=== PATIENT | female | born 1940 | race American Indian/Alaskan Native ===

== ENCOUNTER 2017-10-31 00:40 | Inpatient (IN) | payer MEDICARE ==
[2017-10-31] MEDS ORDERED: Albuterol/Ipratropium 3.0-0.5 MG/3 ML Neb Soln ONE (00:52)
[2017-10-31] MEDS ORDERED: Albuterol/Ipratropium 3.0-0.5 MG/3 ML Neb Soln NEB ONE (00:52)
[2017-10-31] MEDS ORDERED: Furosemide 40 MG/4 ML VIAL IVPUSH ONE ×3 (02:01→17:00)
--- NOTE | 2017-10-31 02:50 | EDM.PDOC ---
ED HPI GENERAL MEDICAL PROBLEM - General Chief Complaint: Respiratory Problem Stated Complaint: [facility] Time Seen by Provider: 10/31/17 00:43 Source of Information: Reports: Patient, EMS, RN Notes Reviewed - History of Present Illness INITIAL COMMENTS - FREE TEXT/NARRATIVE: 76-year-old female has been brought here by [facility] for evaluation and treatment of severe difficulty breathing. She does have chronic CHF, chronic renal insufficiency, type 2 diabetes, chronic obesity. Granddaughter states that she is noncompliant with her meds, is supposed to be on furosemide 40 mg twice a day but often misses doses. They state that they have been watching this more carefully this past week or 10 days, trying to make sure she is taking her medication but despite that she continues to "gain weight", become more short of breath with increasing difficulty of mobility to and from commode, chairs and bed. They state she does not walk, uses a scooter to get around. The granddaughter state they have been trying to get her to hospital for about 3 weeks and she has been refusing ago. Her breathing became difficult enough this past evening that she agreed to let them call an ambulance. The granddaughters believe that her current weight is much above her "baseline of around 280 pounds" She has not been coughing. She denies chest pain. - Related Data Allergies Allergy/AdvReac Type Severity Reaction Status Date / Time amoxicillin Allergy Hives Verified 02/16/15 07:52 Home Meds: Home Meds FLUoxetine [PROzac] 60 mg PO DAILY 02/15/15 [History] Potassium Chloride [Klor-Con 10] 20 meq PO DAILY 02/15/15 [History] Carvedilol [Coreg] 3.125 mg PO BID #0 02/19/15 [Rx] Cholecalciferol (Vitamin D3) [Vitamin D3] 2,000 unit PO DAILY 10/31/17 [History] Furosemide [Lasix] 40 mg PO BID 10/31/17 [History] Loratadine [Claritin] 10 mg PO DAILY 10/31/17 [History] Nystatin [Nystatin Crm] 1 dose TOP QID 10/31/17 [History] SitaGLIPtin [Januvia] 25 mg PO DAILY 10/31/17 [History] Triamcinolone Acetonide [Triamcinolone Acetonide 0.5%] 1 dose TOP BID 10/31/17 [ History] hydrOXYzine HCl [hydrOXYzine] 50 mg PO BEDTIME 10/31/17 [History] Past Medical History Cardiovascular History: Reports: Heart Failure Respiratory History: Reports: Pneumonia, Recurrent Gastrointestinal History: Reports: Diverticulosis 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: Reports: Musculoskeletal History: Reports: Fracture Neurological History: Reports: Brain Injury Endocrine/Metabolic History: Reports: Diabetes, Type II - Past Surgical History GI Surgical History: Reports: Colonoscopy, EGD, Hernia Repair/Other Other Female Surgeries/Procedures: then tubes reconstructed Other Musculoskeletal Surgeries/Procedures:: rt ankle pin after fracture, left ankle after accident Social & Family History - Tobacco Use Smoking Status *Q: Never Smoker - Recreational Drug Use Recreational Drug Use: No - Living Situation & Occupation Living situation: Reports: Single ED ROS GENERAL - Review of Systems Review Of Systems: See Below Constitutional: Denies: Fever, Chills, Diaphoresis HEENT: Denies: Throat Pain Respiratory: Reports: Shortness of Breath. Denies: Pleuritic Chest Pain, Cough Cardiovascular: Denies: Chest Pain GI/Abdominal: Denies: Abdominal Pain, Nausea, Vomiting Musculoskeletal: Denies: Shoulder Pain, Arm Pain Neurological: Reports: Difficulty Walking, Weakness (Generalized). Denies: Trouble Speaking ED EXAM, GENERAL - Physical Exam Exam: See Below General Appearance: Alert, No Apparent Distress Eye Exam: Bilateral Eye: PERRL Throat/Mouth: Normal Inspection Head: Atraumatic Neck: Supple Respiratory/Chest: Respiratory Distress (Mild tachypnea), Rales (Bilateral bases ). No: Rhonchi Cardiovascular: Regular Rate, Rhythm, Bradycardia GI/Abdominal: Other (Markedly obese) Extremities: Pedal Edema (Severe bilateral) Neurological: Alert, Oriented, No Motor/Sensory Deficits Skin Exam: Warm, Dry, Normal Color EKG INTERPRETATION EKG Date: 10/31/17 P-Wave: Absent QRS: RBBB ST-T: Other (mild nonspecific St changes) Course - Vital Signs Last Recorded V/S: Last Vital Signs Temp 98.4 F 10/31/17 01:02 Pulse 56 L 10/31/17 01:02 Resp 17 10/31/17 01:02 BP 129/51 L 10/31/17 01:02 Pulse Ox 94 L 10/31/17 01:12 - Orders/Labs/Meds Orders: Active Orders 24 hr Category Date Time Status Patient Status [ADT] Routine ADT 10/31/17 03:54 Active EKG 12 Lead [EKG Documentation Completion] [RC] STAT Care 10/31/17 00:52 Active Oxygen Therapy [RC] ASDIRECTED Care 10/31/17 00:53 Active RT Aerosol Therapy [RC] ASDIRECTED Care 10/31/17 00:53 Active Chest 1V Frontal [CR] Stat Exams 10/31/17 00:52 Taken Labs: Laboratory Tests 10/31/17 10/31/17 10/31/17 Range/Units 00:50 00:50 00:50 WBC 9.68 (3.98-10.04) K/mm3 RBC 3.77 L (3.98-5.22) M/mm3 Hgb 11.3 (11.2-15.7) gm/L Hct 37.3 (34.1-44.9) % MCV 98.9 H (79.4-94.8) fl MCH 30.0 (25.6-32.2) pg MCHC 30.3 L (32.2-35.5) g/dl RDW Std Deviation 55.8 H (36.4-46.3) fL Plt Count 199 (182-369) K/mm3 MPV 10.3 (9.4-12.3) fl Neut % (Auto) 84.6 H (34.0-71.1) % Lymph % (Auto) 8.0 L (19.3-51.7) % [place] % (Auto) 6.1 (4.7-12.5) % Eos % (Auto) 0.9 (0.7-5.8) Baso % (Auto) 0.2 (0.1-1.2) % Neut # (Auto) 8.19 H (1.56-6.13) K/mm3 Lymph # (Auto) 0.77 L (1.18-3.74) K/mm3 [place] # (Auto) 0.59 H (0.24-0.36) K/mm3 Eos # (Auto) 0.09 (0.04-0.36) K/mm3 Baso # (Auto) 0.02 (0.01-0.08) K/mm3 Manual Slide Review Abnormal smear Puncture Site ABG pH (7.35-7.45) ABG pCO2 (35.0-45.0) mmHg ABG pO2 (80.0-100.0) mmHg ABG HCO3 (22.0-26.0) meq/L ABG O2 Saturation (96.0-97.0) % ABG Base Excess (-2-2.0) O2 Delivery Device Oxygen Flow Rate FiO2 (21.00-100.00) % Sodium 142 (136-145) mEq/L Potassium 5.8 H (3.5-5.1) mEq/L Chloride 108 H (98-107) mEq/L Carbon Dioxide 24 (21-32) mEq/L Anion Gap 15.8 H (5-15) BUN 64 H (7-18) mg/dL Creatinine 2.6 H (0.55-1.02) mg/dL Est Cr Clr Drug Dosing TNP Estimated GFR (MDRD) 18 (>60) mL/min BUN/Creatinine Ratio 24.6 H (14-18) Glucose 129 H (83-115) mg/dL POC Glucose (83-110) mg/dL Calcium 8.7 (8.5-10.1) mg/dL Total Bilirubin 1.0 (0.2-1.0) mg/dL AST 21 (15-37) U/L ALT 9 L (14-59) U/L Alkaline Phosphatase 109 (46-116) U/L NT-Pro-B Natriuret Pep 07234 H (0-125) pg/mL Total Protein 7.2 (6.4-8.2) g/dl Albumin 3.0 L (3.4-5.0) g/dl Globulin 4.2 gm/dL Albumin/Globulin Ratio 0.7 L (1-2) 10/31/17 10/31/17 10/31/17 Range/Units 00:54 01:20 01:58 WBC (3.98-10.04) K/mm3 RBC (3.98-5.22) M/mm3 Hgb (11.2-15.7) gm/L Hct (34.1-44.9) % MCV (79.4-94.8) fl MCH (25.6-32.2) pg MCHC (32.2-35.5) g/dl RDW Std Deviation (36.4-46.3) fL Plt Count (182-369) K/mm3 MPV (9.4-12.3) fl Neut % (Auto) (34.0-71.1) % Lymph % (Auto) (19.3-51.7) % [place] % (Auto) (4.7-12.5) % Eos % (Auto) (0.7-5.8) Baso % (Auto) (0.1-1.2) % Neut # (Auto) (1.56-6.13) K/mm3 Lymph # (Auto) (1.18-3.74) K/mm3 [place] # (Auto) (0.24-0.36) K/mm3 Eos # (Auto) (0.04-0.36) K/mm3 Baso # (Auto) (0.01-0.08) K/mm3 Manual Slide Review Puncture Site Rt brachial ABG pH 7.29 L (7.35-7.45) ABG pCO2 49.8 H (35.0-45.0) mmHg ABG pO2 69.0 L (80.0-100.0) mmHg ABG HCO3 23.0 (22.0-26.0) meq/L ABG O2 Saturation 92.5 L (96.0-97.0) % ABG Base Excess -3.2 L (-2-2.0) O2 Delivery Device Cannula Oxygen Flow Rate 3.0 FiO2 32.00 (21.00-100.00) % Sodium (136-145) mEq/L Potassium 5.6 H (3.5-5.1) mEq/L Chloride (98-107) mEq/L Carbon Dioxide (21-32) mEq/L Anion Gap (5-15) BUN (7-18) mg/dL Creatinine (0.55-1.02) mg/dL Est Cr Clr Drug Dosing Estimated GFR (MDRD) (>60) mL/min BUN/Creatinine Ratio (14-18) Glucose (83-115) mg/dL POC Glucose 121 H (83-110) mg/dL Calcium (8.5-10.1) mg/dL Total Bilirubin (0.2-1.0) mg/dL AST (15-37) U/L ALT (14-59) U/L Alkaline Phosphatase (46-116) U/L NT-Pro-B Natriuret Pep (0-125) pg/mL Total Protein (6.4-8.2) g/dl Albumin (3.4-5.0) g/dl Globulin gm/dL Albumin/Globulin Ratio (1-2) Meds: Medications Discontinued Medications Generic Name Dose Route Start Last Admin Trade Name Srinivasa PRN Reason Stop Dose Admin Albuterol/Ipratropium 3 ml 10/31/17 00:52 10/31/17 00:55 Duoneb 3.0-0.5 Mg/3 Ml NEB 10/31/17 00:53 3 ml ONETIME ONE Administration Albuterol/Ipratropium Confirm 10/31/17 00:52 10/31/17 01:18 Duoneb 3.0-0.5 Mg/3 Ml Administered 10/31/17 00:53 Not Given Dose 3 ml .ROUTE .STK-MED ONE Furosemide 40 mg 10/31/17 02:01 Lasix IVPUSH 10/31/17 02:02 NOW ONE - Re-Assessments/Exams Free Text/Narrative Re-Assessment/Exam: 10/31/17 04:06. Patient arrived with 028 L mask with that sats running about 95% . We did turn that down to 3 L nasal cannula and with that sats did maintain around 92-93%. ABGs as documented. PCO2 mildly elevated, pH 7.29. We did give her furosemide 40 mg IV shortly after arrival. Chest x-ray shows quite severe pulmonary congestion compatible with acute on chronic CHF. Initial potassium came back at 5.8. I was worried about hemolysis, repeat potassium 5.6. He has been on potassium supplement, I believe 20 mEq daily. Creatinine elevated at 2.6, BUN elevated at 64. Patient was feeling better on arrival, wanted to go home. Granddaughters are refusing to take her home, states that she needs to receive medical treatment to try get some of her excess fluid off and help her breathing. After that patient does reluctantly agree to stay. Departure - Departure Time of Disposition: 03:45 Disposition: Admitted As Inpatient 68 Condition: Serious Clinical Impression: Hyperkalemia, Fluid retention, Renal insufficiency syndrome Congestive heart failure Qualifiers: Qualified Code(s): I50.9 - Heart failure, unspecified - Discharge Information Referrals: PCP,Not In Area [Primary Care Provider] - Forms: ED Department Discharge ED Communication - Discussed Case With (1) Discussed Case With (1): Admitting Provider (Dr Solares, decision to admit at about 0300) - My Orders Last 24 Hours: My Active Orders 10/31/17 00:52 EKG 12 Lead [EKG Documentation Completion] [RC] STAT Chest 1V Frontal [CR] Stat 10/31/17 00:53 Oxygen Therapy [RC] ASDIRECTED RT Aerosol Therapy [RC] ASDIRECTED 10/31/17 03:54 Patient Status [ADT] Routine - Assessment/Plan Last 24 Hours: My Active Orders 10/31/17 00:52 EKG 12 Lead [EKG Documentation Completion] [RC] STAT Chest 1V Frontal [CR] Stat 10/31/17 00:53 Oxygen Therapy [RC] ASDIRECTED RT Aerosol Therapy [RC] ASDIRECTED 10/31/17 03:54 Patient Status [ADT] Routine
--- NOTE | 2017-10-31 06:58 | CR ---
Chest: Portable view of the chest was obtained. Comparison: Prior chest x-ray of 02/19/15. Heart is enlarged. Mild chronic-appearing pulmonary vascular congestion is seen. Lungs otherwise are clear. Bony structures are grossly intact. Impression: 1. Findings as noted above. Diagnostic code #2
[2017-10-31] MEDS ORDERED: Sodium Polystyrene Sulfonate 15 GM/60 ML Susp 60 ML Bot PO ONE (10:32)
--- NOTE | 2017-10-31 12:22 | PCM.HP ---
H&P History of Present Illness - General Date of Service: 10/31/17 Admit Problem/Dx: Admission Diagnosis/Problem Admission Diagnosis/Problem Congestive heart failure Source of Information: Patient, Family, Provider History Limitations: Reports: No Limitations - History of Present Illness Initial Comments - Free Text/Narative: 76 year old female presented early 10/31/17 w/ a complaint of TOAN, the patient granddaughter reports that she has been SOB, duration is unknown. Activity level is not specified, presumptively NYHA functional class IV. She ambulates minimally, and uses a scooter. Is morbidly obese, BMI 56.7. She was in the hospital in [place], [place] July 2017, treatment addressed acute respiratory distress/failure. The patient reportedly is on chronic O2, 4l/min. At that time she was hypoglycemia, requiring an amp of D50. Currently there is no syncopal/presyncopal episodes, CP/discomfort, or change in appetite; she admits to TOAN/SOB with LE swelling. The majority of the history was provided by her granddaughter who announced that she would not take her grandmother home if she was not admitted. Unable to determine previous evaluation for CHF, a 2 D echo has been ordered. Code status is DNR/DNI. Onset of Symptoms: Reports: Gradual, Unknown/Unsure Duration of Symptoms: Reports: Week(s):, Getting Worse Location: Reports: Generalized Quality: Reports: Same as Previous Episode Severity: Moderate Improves with: Reports: Medication Worsens with: Reports: None Associated Symptoms: Reports: Shortness of Breath, Weakness - Related Data Allergies/Adverse Reactions: Allergies Allergy/AdvReac Type Severity Reaction Status Date / Time amoxicillin Allergy Hives Verified 02/16/15 07:52 doxycycline Allergy Rash Verified 10/31/17 04:18 Penicillins Allergy Other Verified 10/31/17 04:19 Home Medications: Home Meds FLUoxetine [PROzac] 60 mg PO DAILY 02/15/15 [History] Potassium Chloride [Klor-Con 10] 20 meq PO DAILY 02/15/15 [History] Carvedilol [Coreg] 3.125 mg PO BID #0 02/19/15 [Rx] Cholecalciferol (Vitamin D3) [Vitamin D3] 2,000 unit PO DAILY 10/31/17 [History] Furosemide [Lasix] 40 mg PO BID 10/31/17 [History] Levothyroxine 75 mcg PO DAILY 10/31/17 [History] Nystatin [Nystatin Crm] 1 dose TOP QID PRN 10/31/17 [History] SitaGLIPtin [Januvia] 25 mg PO DAILY 10/31/17 [History] Triamcinolone Acetonide [Triamcinolone Acetonide 0.5%] 1 dose TOP BID 10/31/17 [ History] hydrALAZINE [Apresoline] 10 mg PO Q8H 10/31/17 [History] Past Medical History Cardiovascular History: Reports: Heart Failure, Hypertension Respiratory History: Reports: Pneumonia, Recurrent, Sleep Apnea Other Respiratory History: Per patient does not wear CPAP Gastrointestinal History: Reports: Diverticulosis Genitourinary History: Reports: Renal Calculus, Renal Disease 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: Reports: Musculoskeletal History: Reports: Fracture Neurological History: Reports: Brain Injury Endocrine/Metabolic History: Reports: Diabetes, Type II, Hypothyroidism - Infectious Disease History Infectious Disease History: Reports: None - Past Surgical History GI Surgical History: Reports: Colonoscopy, EGD, Hernia Repair/Other Other Female Surgeries/Procedures: then tubes reconstructed Other Musculoskeletal Surgeries/Procedures:: rt ankle pin after fracture, left ankle after accident Social & Family History - Family History Family Medical History: Noncontributory - Tobacco Use Smoking Status *Q: Never Smoker Second Hand Smoke Exposure: No - Caffeine Use Caffeine Use: Reports: Coffee, Soda Other Caffeine Use: Coffee-1-2 cups/day Soda-1 can/day - Recreational Drug Use Recreational Drug Use: No - Living Situation & Occupation Living situation: Reports: Single H&P Review of Systems - Review of Systems: Review Of Systems: See Below General: Reports: Weakness, Weight Gain HEENT: Reports: No Symptoms Pulmonary: Reports: Shortness of Breath Cardiovascular: Reports: No Symptoms Gastrointestinal: Reports: No Symptoms Genitourinary: Reports: No Symptoms Musculoskeletal: Reports: No Symptoms Skin: Reports: No Symptoms Psychiatric: Reports: No Symptoms Neurological: Reports: No Symptoms Hematologic/Lymphatic: Reports: No Symptoms Immunologic: Reports: No Symptoms Exam - Exam Exam: See Below - Vital Signs Vital Signs: Last Vital Signs Temp 37.1 C 10/31/17 09:31 Pulse 56 L 10/31/17 01:02 Resp 22 H 10/31/17 09:31 BP 146/66 H 10/31/17 09:31 Pulse Ox 98 10/31/17 09:31 Weight: 145.195 kg - Exam Quality Assessment: Supplemental Oxygen, DVT Prophylaxis General: Alert, Oriented, Cooperative HEENT: Conjunctiva Clear, EOMI, Hearing Intact, Pupils Equal, Pupils Reactive, PERRLA Neck: Trachea Midline, JVD Lungs: Normal Respiratory Effort, Decreased Breath Sounds Cardiovascular: Regular Rate, Regular Rhythm GI/Abdominal Exam: Normal Bowel Sounds, Soft, Non-Tender, No Organomegaly, No Distention (Female) Exam: Deferred Rectal (Female) Exam: Deferred Back Exam: Normal Inspection Extremities: Normal Inspection, Pedal Edema, Slow Capillary Refill Skin: Warm Neurological: Cranial Nerves Intact, Normal Speech Neuro Extensive - Mental Status: Alert, Oriented x3, Normal Mood/Affect, Normal Cognition, Memory Intact Neuro Extensive - Motor, Sensory, Reflexes: CN II-XII Intact Psychiatric: Alert, Normal Affect, Normal Mood - Patient Data Lab Results Last 24 hrs: Laboratory Results - last 24 hr 10/31/17 10/31/17 10/31/17 Range/Units 00:50 00:50 00:50 WBC 9.68 (3.98-10.04) K/mm3 RBC 3.77 L (3.98-5.22) M/mm3 Hgb 11.3 (11.2-15.7) gm/L Hct 37.3 (34.1-44.9) % MCV 98.9 H (79.4-94.8) fl MCH 30.0 (25.6-32.2) pg MCHC 30.3 L (32.2-35.5) g/dl RDW Std Deviation 55.8 H (36.4-46.3) fL Plt Count 199 (182-369) K/mm3 MPV 10.3 (9.4-12.3) fl Neut % (Auto) 84.6 H (34.0-71.1) % Lymph % (Auto) 8.0 L (19.3-51.7) % [place] % (Auto) 6.1 (4.7-12.5) % Eos % (Auto) 0.9 (0.7-5.8) Baso % (Auto) 0.2 (0.1-1.2) % Neut # (Auto) 8.19 H (1.56-6.13) K/mm3 Lymph # (Auto) 0.77 L (1.18-3.74) K/mm3 [place] # (Auto) 0.59 H (0.24-0.36) K/mm3 Eos # (Auto) 0.09 (0.04-0.36) K/mm3 Baso # (Auto) 0.02 (0.01-0.08) K/mm3 Manual Slide Review Abnormal smear Puncture Site ABG pH (7.35-7.45) ABG pCO2 (35.0-45.0) mmHg ABG pO2 (80.0-100.0) mmHg ABG HCO3 (22.0-26.0) meq/L ABG O2 Saturation (96.0-97.0) % ABG Base Excess (-2-2.0) O2 Delivery Device Oxygen Flow Rate FiO2 (21.00-100.00) % Sodium 142 (136-145) mEq/L Potassium 5.8 H (3.5-5.1) mEq/L Chloride 108 H (98-107) mEq/L Carbon Dioxide 24 (21-32) mEq/L Anion Gap 15.8 H (5-15) BUN 64 H (7-18) mg/dL Creatinine 2.6 H (0.55-1.02) mg/dL Est Cr Clr Drug Dosing TNP Estimated GFR (MDRD) 18 (>60) mL/min BUN/Creatinine Ratio 24.6 H (14-18) Glucose 129 H (83-115) mg/dL POC Glucose (83-110) mg/dL Calcium 8.7 (8.5-10.1) mg/dL Total Bilirubin 1.0 (0.2-1.0) mg/dL AST 21 (15-37) U/L ALT 9 L (14-59) U/L Alkaline Phosphatase 109 (46-116) U/L NT-Pro-B Natriuret Pep 21575 H (0-125) pg/mL Total Protein 7.2 (6.4-8.2) g/dl Albumin 3.0 L (3.4-5.0) g/dl Globulin 4.2 gm/dL Albumin/Globulin Ratio 0.7 L (1-2) 10/31/17 10/31/17 10/31/17 Range/Units 00:54 01:20 01:58 WBC (3.98-10.04) K/mm3 RBC (3.98-5.22) M/mm3 Hgb (11.2-15.7) gm/L Hct (34.1-44.9) % MCV (79.4-94.8) fl MCH (25.6-32.2) pg MCHC (32.2-35.5) g/dl RDW Std Deviation (36.4-46.3) fL Plt Count (182-369) K/mm3 MPV (9.4-12.3) fl Neut % (Auto) (34.0-71.1) % Lymph % (Auto) (19.3-51.7) % [place] % (Auto) (4.7-12.5) % Eos % (Auto) (0.7-5.8) Baso % (Auto) (0.1-1.2) % Neut # (Auto) (1.56-6.13) K/mm3 Lymph # (Auto) (1.18-3.74) K/mm3 [place] # (Auto) (0.24-0.36) K/mm3 Eos # (Auto) (0.04-0.36) K/mm3 Baso # (Auto) (0.01-0.08) K/mm3 Manual Slide Review Puncture Site Rt brachial ABG pH 7.29 L (7.35-7.45) ABG pCO2 49.8 H (35.0-45.0) mmHg ABG pO2 69.0 L (80.0-100.0) mmHg ABG HCO3 23.0 (22.0-26.0) meq/L ABG O2 Saturation 92.5 L (96.0-97.0) % ABG Base Excess -3.2 L (-2-2.0) O2 Delivery Device Cannula Oxygen Flow Rate 3.0 FiO2 32.00 (21.00-100.00) % Sodium (136-145) mEq/L Potassium 5.6 H (3.5-5.1) mEq/L Chloride (98-107) mEq/L Carbon Dioxide (21-32) mEq/L Anion Gap (5-15) BUN (7-18) mg/dL Creatinine (0.55-1.02) mg/dL Est Cr Clr Drug Dosing Estimated GFR (MDRD) (>60) mL/min BUN/Creatinine Ratio (14-18) Glucose (83-115) mg/dL POC Glucose 121 H (83-110) mg/dL Calcium (8.5-10.1) mg/dL Total Bilirubin (0.2-1.0) mg/dL AST (15-37) U/L ALT (14-59) U/L Alkaline Phosphatase (46-116) U/L NT-Pro-B Natriuret Pep (0-125) pg/mL Total Protein (6.4-8.2) g/dl Albumin (3.4-5.0) g/dl Globulin gm/dL Albumin/Globulin Ratio (1-2) //18 Range/Units 06:31 WBC (3.98-10.04) K/mm3 RBC (3.98-5.22) M/mm3 Hgb (11.2-15.7) gm/L Hct (34.1-44.9) % MCV (79.4-94.8) fl MCH (25.6-32.2) pg MCHC (32.2-35.5) g/dl RDW Std Deviation (36.4-46.3) fL Plt Count (182-369) K/mm3 MPV (9.4-12.3) fl Neut % (Auto) (34.0-71.1) % Lymph % (Auto) (19.3-51.7) % [place] % (Auto) (4.7-12.5) % Eos % (Auto) (0.7-5.8) Baso % (Auto) (0.1-1.2) % Neut # (Auto) (1.56-6.13) K/mm3 Lymph # (Auto) (1.18-3.74) K/mm3 [place] # (Auto) (0.24-0.36) K/mm3 Eos # (Auto) (0.04-0.36) K/mm3 Baso # (Auto) (0.01-0.08) K/mm3 Manual Slide Review Puncture Site ABG pH (7.35-7.45) ABG pCO2 (35.0-45.0) mmHg ABG pO2 (80.0-100.0) mmHg ABG HCO3 (22.0-26.0) meq/L ABG O2 Saturation (96.0-97.0) % ABG Base Excess (-2-2.0) O2 Delivery Device Oxygen Flow Rate FiO2 (21.00-100.00) % Sodium (136-145) mEq/L Potassium (3.5-5.1) mEq/L Chloride (98-107) mEq/L Carbon Dioxide (21-32) mEq/L Anion Gap (5-15) BUN (7-18) mg/dL Creatinine (0.55-1.02) mg/dL Est Cr Clr Drug Dosing Estimated GFR (MDRD) (>60) mL/min BUN/Creatinine Ratio (14-18) Glucose (83-115) mg/dL POC Glucose 112 H (83-110) mg/dL Calcium (8.5-10.1) mg/dL Total Bilirubin (0.2-1.0) mg/dL AST (15-37) U/L ALT (14-59) U/L Alkaline Phosphatase (46-116) U/L NT-Pro-B Natriuret Pep (0-125) pg/mL Total Protein (6.4-8.2) g/dl Albumin (3.4-5.0) g/dl Globulin gm/dL Albumin/Globulin Ratio (1-2) Result Diagrams: 10/31/17 00:50 10/31/17 01:58 - Problem List (1) Diabetes mellitus SNOMED Code(s): 17919682 ICD Code: E11.9 - TYPE 2 DIABETES MELLITUS WITHOUT COMPLICATIONS Status: Acute Current Visit: Yes (2) Hypertension SNOMED Code(s): 10069497 ICD Code: I10 - ESSENTIAL (PRIMARY) HYPERTENSION Status: Acute Current Visit: Yes (3) Hyperlipidemia associated with type 2 diabetes mellitus SNOMED Code(s): 280241319102, 033688587486 ICD Code: E11.69 - TYPE 2 DIABETES MELLITUS WITH OTHER SPECIFIED COMPLICATION ; E78.5 - HYPERLIPIDEMIA, UNSPECIFIED Status: Acute Current Visit: Yes (4) Morbid obesity due to excess calories SNOMED Code(s): 394682973 ICD Code: E66.01 - MORBID (SEVERE) OBESITY DUE TO EXCESS CALORIES Status: Acute Current Visit: Yes (5) Congestive heart failure SNOMED Code(s): 41091006 ICD Code: I50.9 - HEART FAILURE, UNSPECIFIED Status: Acute Current Visit : Yes (6) Fluid retention SNOMED Code(s): 71048111 ICD Code: R60.9 - EDEMA, UNSPECIFIED Status: Acute Current Visit: Yes (7) Hyperkalemia SNOMED Code(s): 12010822 ICD Code: E87.5 - HYPERKALEMIA Status: Acute Current Visit: Yes (8) Renal insufficiency SNOMED Code(s): 267948390, 555118093 ICD Code: N28.9 - DISORDER OF KIDNEY AND URETER, UNSPECIFIED Status: Acute Current Visit: Yes (9) Abnormal liver function tests SNOMED Code(s): 153381552 ICD Code: R79.89 - OTHER SPECIFIED ABNORMAL FINDINGS OF BLOOD CHEMISTRY Status: Acute Current Visit: No (10) Acute encephalopathy SNOMED Code(s): 82158327, 514944134 ICD Code: G93.40 - ENCEPHALOPATHY, UNSPECIFIED Status: Acute Current Visit: No Problem List Initiated/Reviewed/Updated: Yes Orders Last 24hrs: Active Orders 24 hr Category Date Time Status Patient Status [ADT] Routine ADT 10/31/17 03:54 Active Oxygen Therapy [RC] ASDIRECTED Care 10/31/17 05:54 Active RT Aerosol Therapy [RC] ASDIRECTED Care 10/31/17 00:53 Active Up With Assistance [RC] ASDIRECTED Care 10/31/17 05:54 Active Consult to Occupational Therapy [OT Evaluation and Cons 10/31/17 12:01 Active Treatment] [CONS] Routine Consult to Physical Therapy [PT Evaluation and Cons 10/31/17 12:01 Active Treatment] [CONS] Routine 2 Gram Sodium Diet [DIET] Diet 10/31/17 Lunch Active [employer] Diet [DIET] Diet 10/31/17 Lunch Active Code Status [Resuscitation Status] Routine Resus Stat 10/31/17 05:51 Ordered Assessment/Plan Comment:: Impression: Query acute decompensated HF HF, unclear etiology History of recent hospitalization for respiratory distress Hyperkalemia HF, unclear etiology. 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
[2017-10-31] MEDS ORDERED: 50% Dextrose in Water 50 ML Syringe IVPUSH PRN (12:29)
[2017-10-31] MEDS: Nystatin Crm 30 GM Tube TOP PRN (14:59)
[2017-10-31] MEDS: Insulin Aspart 100 Units/ML 3 ML Pen SUBCUT SCH ×2 (17:34→22:00)
[2017-10-31] MEDS: Triamcinolone Acetonide 0.5% Crm 15 GM Tube TOP SCH (20:22)
[2017-10-31] MEDS ORDERED: Carvedilol 3.125 MG Tab PO SCH (21:00)
[2017-11-01] MEDS: Levothyroxine 75 MCG Tab PO SCH (06:16)
[2017-11-01] MEDS: Insulin Aspart 100 Units/ML 3 ML Pen SUBCUT SCH ×4 (06:20→23:11)
[2017-11-01] MEDS: FLUoxetine 20 MG Cap PO SCH (08:53)
[2017-11-01] MEDS: Cholecalciferol (Vitamin D3) 1,000 Unit Tab PO SCH (08:55)
[2017-11-01] MEDS: Alogliptin 12.5 MG TABLET PO SCH (08:55)
--- NOTE | 2017-11-01 08:56 | CR ---
Chest: Two views of the chest were obtained. Comparison: Prior chest x-ray of 10/31/17 and 02/19/15. Lateral view shows motion. Heart size is slightly enlarged. Minimal areas of atelectasis are scattered within the left lung. Pulmonary vessels are felt to be slightly congested and questionably more prominent than on prior exam. Bony structures are grossly intact. Impression: 1. Scattered areas of atelectasis within the left lung as an interval change. 2. Questionably increased pulmonary vascular congestion from prior study. Diagnostic code #3
[2017-11-01] MEDS ORDERED: Potassium Chloride 10 MEQ Tab.ER PO SCH (09:00)
[2017-11-01] MEDS: Triamcinolone Acetonide 0.5% Crm 15 GM Tube TOP SCH ×2 (09:43→23:10)
[2017-11-01] MEDS ORDERED: Aluminum Hydroxide/Magnesium Hydroxide/Simethicone Susp 30 ML Cup PO PRN (09:53)
[2017-11-01] MEDS: Heparin Sodium 5,000 Units/ML Vial SUBCUT SCH ×2 (10:05→17:38)
[2017-11-01] MEDS ORDERED: Furosemide 100 MG in Sodium Chloride 0.9% 90 ML IV SCH (11:00)
--- NOTE | 2017-11-01 13:24 | PCM.PN ---
- General Info Date of Service: 11/01/17 Functional Status: Reports: Tolerating Diet, Urinating - Review of Systems General: Reports: Weakness HEENT: Reports: No Symptoms Pulmonary: Reports: Shortness of Breath Cardiovascular: Reports: No Symptoms Gastrointestinal: Reports: No Symptoms Genitourinary: Reports: No Symptoms Musculoskeletal: Reports: No Symptoms Skin: Reports: No Symptoms Neurological: Reports: No Symptoms Psychiatric: Reports: No Symptoms - Patient Data Vitals - Most Recent: Last Vital Signs Temp 36.8 C 11/01/17 09:30 Pulse 61 11/01/17 09:30 Resp 20 11/01/17 09:30 BP 116/91 H 11/01/17 09:30 Pulse Ox 95 11/01/17 09:30 Weight - Most Recent: 142.7 kg I&O - Last 24 Hours: Intake & Output 10/31/17 11/01/17 11/01/17 22:59 06:59 14:59 Intake Total 720 400 180 Balance 720 400 180 Lab Results Last 24 Hours: Laboratory Results - last 24 hr 10/31/17 10/31/17 10/31/17 Range/Units 17:04 18:20 21:01 WBC (3.98-10.04) K/mm3 RBC (3.98-5.22) M/mm3 Hgb (11.2-15.7) gm/L Hct (34.1-44.9) % MCV (79.4-94.8) fl MCH (25.6-32.2) pg MCHC (32.2-35.5) g/dl RDW Std Deviation (36.4-46.3) fL Plt Count (182-369) K/mm3 MPV (9.4-12.3) fl Neut % (Auto) (34.0-71.1) % Lymph % (Auto) (19.3-51.7) % [place] % (Auto) (4.7-12.5) % Eos % (Auto) (0.7-5.8) Baso % (Auto) (0.1-1.2) % Neut # (Auto) (1.56-6.13) K/mm3 Lymph # (Auto) (1.18-3.74) K/mm3 [place] # (Auto) (0.24-0.36) K/mm3 Eos # (Auto) (0.04-0.36) K/mm3 Baso # (Auto) (0.01-0.08) K/mm3 Manual Slide Review Sodium 143 (136-145) mEq/L Potassium 4.8 (3.5-5.1) mEq/L Chloride 108 H (98-107) mEq/L Carbon Dioxide 26 (21-32) mEq/L Anion Gap 13.8 (5-15) BUN 64 H (7-18) mg/dL Creatinine 2.4 H (0.55-1.02) mg/dL Est Cr Clr Drug Dosing 17.01 mL/min Estimated GFR (MDRD) 20 (>60) mL/min BUN/Creatinine Ratio 26.7 H (14-18) Glucose 139 H (83-115) mg/dL POC Glucose 114 H 114 H (83-110) mg/dL Hemoglobin A1c (4.50-6.20) % Calcium 8.7 (8.5-10.1) mg/dL Magnesium (1.8-2.4) mg/dl NT-Pro-B Natriuret Pep (0-125) pg/mL Triglycerides (<150) mg/dL Cholesterol (<200) mg/dL LDL Cholesterol Direct (<100) mg/dL HDL Cholesterol (40-59) mg/dL Vitamin B12 (193-986) pg/ml TSH 3rd Generation (0.358-3.74) uIU/mL 11/01/1718 11/01/17 Range/Units 06:15 06:18 06:18 WBC (3.98-10.04) K/mm3 RBC (3.98-5.22) M/mm3 Hgb (11.2-15.7) gm/L Hct (34.1-44.9) % MCV (79.4-94.8) fl MCH (25.6-32.2) pg MCHC (32.2-35.5) g/dl RDW Std Deviation (36.4-46.3) fL Plt Count (182-369) K/mm3 MPV (9.4-12.3) fl Neut % (Auto) (34.0-71.1) % Lymph % (Auto) (19.3-51.7) % [place] % (Auto) (4.7-12.5) % Eos % (Auto) (0.7-5.8) Baso % (Auto) (0.1-1.2) % Neut # (Auto) (1.56-6.13) K/mm3 Lymph # (Auto) (1.18-3.74) K/mm3 [place] # (Auto) (0.24-0.36) K/mm3 Eos # (Auto) (0.04-0.36) K/mm3 Baso # (Auto) (0.01-0.08) K/mm3 Manual Slide Review Sodium 144 (136-145) mEq/L Potassium 4.4 (3.5-5.1) mEq/L Chloride 109 H (98-107) mEq/L Carbon Dioxide 27 (21-32) mEq/L Anion Gap 12.4 (5-15) BUN 63 H (7-18) mg/dL Creatinine 2.3 H (0.55-1.02) mg/dL Est Cr Clr Drug Dosing 17.75 mL/min Estimated GFR (MDRD) 21 (>60) mL/min BUN/Creatinine Ratio 27.4 H (14-18) Glucose 103 (83-115) mg/dL POC Glucose 108 (83-110) mg/dL Hemoglobin A1c (4.50-6.20) % Calcium 8.5 (8.5-10.1) mg/dL Magnesium 2.4 (1.8-2.4) mg/dl NT-Pro-B Natriuret Pep 27815 H (0-125) pg/mL Triglycerides 49 (<150) mg/dL Cholesterol 90 (<200) mg/dL LDL Cholesterol Direct 48 (<100) mg/dL HDL Cholesterol 38.0 L (40-59) mg/dL Vitamin B12 (193-986) pg/ml TSH 3rd Generation 2.593 (0.358-3.74) uIU/mL 11/01/17 11/01/17 11/01/17 Range/Units 06:18 06:18 06:18 WBC 7.58 (3.98-10.04) K/mm3 RBC 3.51 L (3.98-5.22) M/mm3 Hgb 10.5 L (11.2-15.7) gm/L Hct 34.9 (34.1-44.9) % MCV 99.4 H (79.4-94.8) fl MCH 29.9 (25.6-32.2) pg MCHC 30.1 L (32.2-35.5) g/dl RDW Std Deviation 57.6 H (36.4-46.3) fL Plt Count 196 (182-369) K/mm3 MPV 10.0 (9.4-12.3) fl Neut % (Auto) 78.9 H (34.0-71.1) % Lymph % (Auto) 9.5 L (19.3-51.7) % [place] % (Auto) 6.5 (4.7-12.5) % Eos % (Auto) 4.5 (0.7-5.8) Baso % (Auto) 0.3 (0.1-1.2) % Neut # (Auto) 5.99 (1.56-6.13) K/mm3 Lymph # (Auto) 0.72 L (1.18-3.74) K/mm3 [place] # (Auto) 0.49 H (0.24-0.36) K/mm3 Eos # (Auto) 0.34 (0.04-0.36) K/mm3 Baso # (Auto) 0.02 (0.01-0.08) K/mm3 Manual Slide Review Abnormal smear Sodium (136-145) mEq/L Potassium (3.5-5.1) mEq/L Chloride (98-107) mEq/L Carbon Dioxide (21-32) mEq/L Anion Gap (5-15) BUN (7-18) mg/dL Creatinine (0.55-1.02) mg/dL Est Cr Clr Drug Dosing mL/min Estimated GFR (MDRD) (>60) mL/min BUN/Creatinine Ratio (14-18) Glucose (83-115) mg/dL POC Glucose (83-110) mg/dL Hemoglobin A1c 6.80 H (4.50-6.20) % Calcium (8.5-10.1) mg/dL Magnesium (1.8-2.4) mg/dl NT-Pro-B Natriuret Pep (0-125) pg/mL Triglycerides (<150) mg/dL Cholesterol (<200) mg/dL LDL Cholesterol Direct (<100) mg/dL HDL Cholesterol (40-59) mg/dL Vitamin B12 754 (193-986) pg/ml TSH 3rd Generation (0.358-3.74) uIU/mL 11/01/17 Range/Units 11:02 WBC (3.98-10.04) K/mm3 RBC (3.98-5.22) M/mm3 Hgb (11.2-15.7) gm/L Hct (34.1-44.9) % MCV (79.4-94.8) fl MCH (25.6-32.2) pg MCHC (32.2-35.5) g/dl RDW Std Deviation (36.4-46.3) fL Plt Count (182-369) K/mm3 MPV (9.4-12.3) fl Neut % (Auto) (34.0-71.1) % Lymph % (Auto) (19.3-51.7) % [place] % (Auto) (4.7-12.5) % Eos % (Auto) (0.7-5.8) Baso % (Auto) (0.1-1.2) % Neut # (Auto) (1.56-6.13) K/mm3 Lymph # (Auto) (1.18-3.74) K/mm3 [place] # (Auto) (0.24-0.36) K/mm3 Eos # (Auto) (0.04-0.36) K/mm3 Baso # (Auto) (0.01-0.08) K/mm3 Manual Slide Review Sodium (136-145) mEq/L Potassium (3.5-5.1) mEq/L Chloride (98-107) mEq/L Carbon Dioxide (21-32) mEq/L Anion Gap (5-15) BUN (7-18) mg/dL Creatinine (0.55-1.02) mg/dL Est Cr Clr Drug Dosing mL/min Estimated GFR (MDRD) (>60) mL/min BUN/Creatinine Ratio (14-18) Glucose (83-115) mg/dL POC Glucose 121 H (83-110) mg/dL Hemoglobin A1c (4.50-6.20) % Calcium (8.5-10.1) mg/dL Magnesium (1.8-2.4) mg/dl NT-Pro-B Natriuret Pep (0-125) pg/mL Triglycerides (<150) mg/dL Cholesterol (<200) mg/dL LDL Cholesterol Direct (<100) mg/dL HDL Cholesterol (40-59) mg/dL Vitamin B12 (193-986) pg/ml TSH 3rd Generation (0.358-3.74) uIU/mL Med Orders - Current: Current Medications Al Hydroxide/Mg Hydroxide (Mag-Al Plus) 30 ml PO Q4H PRN PRN Reason: Heartburn Last Admin: 11/01/17 10:04 Dose: 30 ml Alogliptin Benzoate (Alogliptin) 6.25 mg PO DAILY [facility] Last Admin: 11/01/17 08:55 Dose: 6.25 mg Carvedilol (Coreg) 3.125 mg PO BID [facility] Cholecalciferol (Vitamin D3) 2,000 units PO DAILY [facility] Last Admin: 11/01/17 08:55 Dose: 2,000 units Dextrose/Water (Dextrose 50% In Water) 50 ml IVPUSH ASDIRECTED PRN PRN Reason: Hypoglycemia Fluoxetine HCl (Prozac) 60 mg PO DAILY [facility] Last Admin: 11/01/17 08:53 Dose: 60 mg Heparin Sodium (Porcine) (Heparin Sodium) 5,000 units SUBCUT Q8H [facility] Last Admin: 11/01/17 10:05 Dose: 5,000 units Furosemide 100 mg/ Sodium (Chloride) 100 mls @ 3 mls/hr IV TITRATE [facility] Stop: 11/02/17 11:01 Last Admin: 11/01/17 12:08 Dose: 3 mls/hr Insulin Aspart (Novolog) 0 unit SUBCUT QIDACANDBED [facility]; Protocol Last Admin: 11/01/17 11:18 Dose: Not Given Levothyroxine Sodium (Levothyroxine) 75 mcg PO ACBREAKFAST [facility] Last Admin: 11/01/17 06:16 Dose: 75 mcg Nystatin (Nystatin Crm) 0 gm TOP QID PRN PRN Reason: rash Last Admin: 10/31/17 14:59 Dose: 5 mg Potassium Chloride (Klor-Con 10) 20 meq PO DAILY [facility] Last Admin: 11/01/17 08:54 Dose: 20 meq Triamcinolone Acetonide (Triamcinolone Acetonide 0.5%) 0 gm TOP BID [facility] Last Admin: 11/01/17 09:43 Dose: 1 applic Discontinued Medications Albuterol/Ipratropium (Duoneb 3.0-0.5 Mg/3 Ml) 3 ml NEB ONETIME ONE Stop: 10/31/17 00:53 Last Admin: 10/31/17 00:55 Dose: 3 ml Albuterol/Ipratropium (Duoneb 3.0-0.5 Mg/3 Ml) Confirm Administered Dose 3 ml .ROUTE .STK-MED ONE Stop: 10/31/17 00:53 Last Admin: 10/31/17 01:18 Dose: Not Given Furosemide (Lasix) 40 mg IVPUSH NOW ONE Stop: 10/31/17 02:02 Last Admin: 10/31/17 02:05 Dose: 40 mg Furosemide (Lasix) 40 mg IVPUSH NOW ONE Stop: 10/31/17 06:01 Last Admin: 10/31/17 06:27 Dose: 40 mg Furosemide (Lasix) 40 mg IVPUSH NOW ONE Stop: 10/31/17 17:01 Last Admin: 10/31/17 17:37 Dose: 40 mg Sodium Polystyrene Sulfonate (Kayexalate) 45 gm PO NOW ONE Stop: 10/31/17 10:33 Last Admin: 10/31/17 11:01 Dose: 45 gm - Exam Quality Assessment: Supplemental Oxygen, DVT Prophylaxis General: Alert, Oriented, Cooperative, No Acute Distress HEENT: Pupils Equal, Pupils Reactive, EOMI Neck: Trachea Midline, No JVD Lungs: Normal Respiratory Effort, Decreased Breath Sounds Cardiovascular: Regular Rate, Regular Rhythm GI/Abdominal Exam: Normal Bowel Sounds, Soft, Non-Tender, No Organomegaly, No Distention (Female) Exam: Deferred Back Exam: Normal Inspection Extremities: Normal Inspection, Non-Tender, Pedal Edema Skin: Warm Neurological: No New Focal Deficit Psy/Mental Status: Alert, Normal Affect, Normal Mood - Problem List & Annotations (1) Diabetes mellitus SNOMED Code(s): 41095310 Code(s): E11.9 - TYPE 2 DIABETES MELLITUS WITHOUT COMPLICATIONS Status: Acute Current Visit: Yes (2) Hypertension SNOMED Code(s): 09575701 Code(s): I10 - ESSENTIAL (PRIMARY) HYPERTENSION Status: Acute Current Visit: Yes (3) Hyperlipidemia associated with type 2 diabetes mellitus SNOMED Code(s): 743039129436, 528363921985 Code(s): E11.69 - TYPE 2 DIABETES MELLITUS WITH OTHER SPECIFIED COMPLICATION ; E78.5 - HYPERLIPIDEMIA, UNSPECIFIED Status: Acute Current Visit: Yes (4) Morbid obesity due to excess calories SNOMED Code(s): 868273145 Code(s): E66.01 - MORBID (SEVERE) OBESITY DUE TO EXCESS CALORIES Status: Acute Current Visit: Yes (5) Congestive heart failure SNOMED Code(s): 99315322 Code(s): I50.9 - HEART FAILURE, UNSPECIFIED Status: Acute Current Visit: Yes (6) Fluid retention SNOMED Code(s): 17959930 Code(s): R60.9 - EDEMA, UNSPECIFIED Status: Acute Current Visit: Yes (7) Hyperkalemia SNOMED Code(s): 12055376 Code(s): E87.5 - HYPERKALEMIA Status: Acute Current Visit: Yes (8) Renal insufficiency SNOMED Code(s): 342460886, 520619033 Code(s): N28.9 - DISORDER OF KIDNEY AND URETER, UNSPECIFIED Status: Acute Current Visit: Yes (9) Abnormal liver function tests SNOMED Code(s): 692139650 Code(s): R79.89 - OTHER SPECIFIED ABNORMAL FINDINGS OF BLOOD CHEMISTRY Status: Acute Current Visit: No (10) Acute encephalopathy SNOMED Code(s): 69356325, 618368698 Code(s): G93.40 - ENCEPHALOPATHY, UNSPECIFIED Status: Acute Current Visit : No - Problem List Review Problem List Initiated/Reviewed/Updated: Yes - My Orders Last 24 Hours: My Active Orders 10/31/17 12:29 Blood Glucose Check, Bedside [RC] QIDACANDBED Dextrose 50% in Water 50 ml IVPUSH ASDIRECTED PRN 10/31/17 12:45 Nystatin [Nystatin Crm] 0 gm TOP QID PRN 10/31/17 12:55 Consult to Case Management [CONS] Routine 10/31/17 13:09 ALIX Hose [Antiembolic Hose] [OM.PC] Routine 10/31/17 17:00 Insulin Aspart [NovoLOG] See Protocol SUBCUT QIDACANDBED 10/31/17 21:00 Carvedilol [Coreg] 3.125 mg PO BID Triamcinolone Acetonide [Triamcinolone Acetonide 0.5%] 0 gm TOP BID 11/01/17 00:01 Consult to Dietary [Consult to Data Management Associate] [CONS] Routine 11/01/17 06:00 Levothyroxine 75 mcg PO ACBREAKFAST 11/01/17 06:18 FOLATE, RBC [REF] Routine 11/01/17 09:00 Alogliptin Benzoate [Alogliptin] 6.25 mg PO DAILY Cholecalciferol (Vitamin D3) [Vitamin D3] 2,000 units PO DAILY FLUoxetine [PROzac] 60 mg PO DAILY Potassium Chloride [Klor-Con 10] 20 meq PO DAILY 11/01/17 09:30 Heparin Sodium 5,000 units SUBCUT Q8H 11/01/17 09:53 Alum Hydrox/Mag Hydrox/Simeth [Mag-Al Plus] 30 ml PO Q4H PRN 11/01/17 11:00 Furosemide [Lasix] 100 mg Sodium Chloride 0.9% [Normal Saline] 90 ml IV TITRATE 11/01/17 Breakfast ADA Diabetic [[place] [employer] Diet] [DIET] 11/02/17 05:00 BMP [BASIC METABOLIC PANEL,BMP] [CHEM] DAILY CBC WITH AUTO DIFF [HEME] DAILY MAGNESIUM [CHEM] DAILY PRO B-TYPE NATRIUR PEPT,BNPPRO [CHEM] DAILY - Plan Plan:: Impression: Query acute decompensated HF HF, unclear etiology; refused 2D echo after it was started History of recent hospitalization for respiratory distress Hyperkalemia--resolved after kayexelate Morbid obesity, BMI 56.7 Hx of medical noncompliance 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
[2017-11-01] MEDS: Temazepam 15 MG Cap PO PRN (22:16)
[2017-11-02] MEDS: Heparin Sodium 5,000 Units/ML Vial SUBCUT SCH ×3 (03:15→17:22)
[2017-11-02] MEDS: Levothyroxine 75 MCG Tab PO SCH (05:49)
[2017-11-02] MEDS: Insulin Aspart 100 Units/ML 3 ML Pen SUBCUT SCH ×4 (07:14→21:13)
[2017-11-02] MEDS: Alogliptin 12.5 MG TABLET PO SCH (09:18)
[2017-11-02] MEDS: FLUoxetine 20 MG Cap PO SCH (09:19)
[2017-11-02] MEDS: Cholecalciferol (Vitamin D3) 1,000 Unit Tab PO SCH (09:21)
[2017-11-02] MEDS: Nystatin Crm 30 GM Tube TOP PRN ×2 (09:22→21:12)
[2017-11-02] MEDS: Triamcinolone Acetonide 0.5% Crm 15 GM Tube TOP SCH ×2 (09:22→21:16)
[2017-11-02] MEDS ORDERED: Furosemide 100 MG in Sodium Chloride 0.9% 90 ML IV SCH ×3 (09:30→12:30)
--- NOTE | 2017-11-02 09:39 | PCM.PN ---
- General Info Date of Service: 11/02/17 Subjective Update: Patient was seen earlier and appered to be compliant, however when her family discussed checking out of the hotel, she requested to leave. At this time, more diuresis is required; the BNP conspicuously documents exogenous fluid ingestion. Thus her BNP is now higher, not lower as expected. She was told that she would have to sign out AMA, but as of this writing, has decided to stay. Functional Status: Reports: Pain Controlled, Tolerating Diet, Ambulating ( refusing to walk or bear weight), Urinating (incontinent) - Review of Systems General: Reports: No Symptoms HEENT: Reports: No Symptoms Pulmonary: Reports: No Symptoms Cardiovascular: Reports: No Symptoms Gastrointestinal: Reports: No Symptoms Genitourinary: Reports: No Symptoms Musculoskeletal: Reports: No Symptoms Skin: Reports: No Symptoms Neurological: Reports: No Symptoms Psychiatric: Reports: No Symptoms - Patient Data Vitals - Most Recent: Last Vital Signs Temp 36.6 C 11/02/17 09:20 Pulse 57 L 11/02/17 09:32 Resp 20 11/02/17 09:20 BP 132/63 11/02/17 09:32 Pulse Ox 96 11/02/17 09:32 Weight - Most Recent: 142.201 kg I&O - Last 24 Hours: Intake & Output 11/01/17 11/02/17 11/02/17 22:59 06:59 14:59 Intake Total 533 438 Balance 533 438 Lab Results Last 24 Hours: Laboratory Results - last 24 hr 11/01/17 11/01/17 11/01/17 Range/Units :18 11:02 16:40 WBC (3.98-10.04) K/mm3 RBC (3.98-5.22) M/mm3 Hgb (11.2-15.7) gm/L Hct (34.1-44.9) % MCV (79.4-94.8) fl MCH (25.6-32.2) pg MCHC (32.2-35.5) g/dl RDW Std Deviation (36.4-46.3) fL Plt Count (182-369) K/mm3 MPV (9.4-12.3) fl Neut % (Auto) (34.0-71.1) % Lymph % (Auto) (19.3-51.7) % [place] % (Auto) (4.7-12.5) % Eos % (Auto) (0.7-5.8) Baso % (Auto) (0.1-1.2) % Neut # (Auto) (1.56-6.13) K/mm3 Lymph # (Auto) (1.18-3.74) K/mm3 [place] # (Auto) (0.24-0.36) K/mm3 Eos # (Auto) (0.04-0.36) K/mm3 Baso # (Auto) (0.01-0.08) K/mm3 Sodium (136-145) mEq/L Potassium (3.5-5.1) mEq/L Chloride (98-107) mEq/L Carbon Dioxide (21-32) mEq/L Anion Gap (5-15) BUN (7-18) mg/dL Creatinine (0.55-1.02) mg/dL Est Cr Clr Drug Dosing mL/min Estimated GFR (MDRD) (>60) mL/min BUN/Creatinine Ratio (14-18) Glucose (83-115) mg/dL POC Glucose 121 H 118 H (83-110) mg/dL Calcium (8.5-10.1) mg/dL Magnesium (1.8-2.4) mg/dl NT-Pro-B Natriuret Pep (0-125) pg/mL Vitamin B12 754 (193-986) pg/ml 11/01/17 11/02/17 11/02/17 Range/Units 23:09 05:57 06:50 WBC (3.98-10.04) K/mm3 RBC (3.98-5.22) M/mm3 Hgb (11.2-15.7) gm/L Hct (34.1-44.9) % MCV (79.4-94.8) fl MCH (25.6-32.2) pg MCHC (32.2-35.5) g/dl RDW Std Deviation (36.4-46.3) fL Plt Count (182-369) K/mm3 MPV (9.4-12.3) fl Neut % (Auto) (34.0-71.1) % Lymph % (Auto) (19.3-51.7) % [place] % (Auto) (4.7-12.5) % Eos % (Auto) (0.7-5.8) Baso % (Auto) (0.1-1.2) % Neut # (Auto) (1.56-6.13) K/mm3 Lymph # (Auto) (1.18-3.74) K/mm3 [place] # (Auto) (0.24-0.36) K/mm3 Eos # (Auto) (0.04-0.36) K/mm3 Baso # (Auto) (0.01-0.08) K/mm3 Sodium (136-145) mEq/L Potassium (3.5-5.1) mEq/L Chloride (98-107) mEq/L Carbon Dioxide (21-32) mEq/L Anion Gap (5-15) BUN (7-18) mg/dL Creatinine (0.55-1.02) mg/dL Est Cr Clr Drug Dosing mL/min Estimated GFR (MDRD) (>60) mL/min BUN/Creatinine Ratio (14-18) Glucose (83-115) mg/dL POC Glucose 137 H 93 (83-110) mg/dL Calcium (8.5-10.1) mg/dL Magnesium (1.8-2.4) mg/dl NT-Pro-B Natriuret Pep 11375 H (0-125) pg/mL Vitamin B12 (193-986) pg/ml 11/02/17 11/02/17 Range/Units 06:50 06:50 WBC 7.48 (3.98-10.04) K/mm3 RBC 3.62 L (3.98-5.22) M/mm3 Hgb 10.9 L (11.2-15.7) gm/L Hct 36.3 (34.1-44.9) % MCV 100.3 H (79.4-94.8) fl MCH 30.1 (25.6-32.2) pg MCHC 30.0 L (32.2-35.5) g/dl RDW Std Deviation 57.2 H (36.4-46.3) fL Plt Count 169 L (182-369) K/mm3 MPV 9.1 L (9.4-12.3) fl Neut % (Auto) 78.3 H (34.0-71.1) % Lymph % (Auto) 10.7 L (19.3-51.7) % [place] % (Auto) 6.7 (4.7-12.5) % Eos % (Auto) 3.9 (0.7-5.8) Baso % (Auto) 0.3 (0.1-1.2) % Neut # (Auto) 5.86 (1.56-6.13) K/mm3 Lymph # (Auto) 0.80 L (1.18-3.74) K/mm3 [place] # (Auto) 0.50 H (0.24-0.36) K/mm3 Eos # (Auto) 0.29 (0.04-0.36) K/mm3 Baso # (Auto) 0.02 (0.01-0.08) K/mm3 Sodium 146 H (136-145) mEq/L Potassium 4.0 (3.5-5.1) mEq/L Chloride 110 H (98-107) mEq/L Carbon Dioxide 29 (21-32) mEq/L Anion Gap 11.0 (5-15) BUN 57 H (7-18) mg/dL Creatinine 2.0 H (0.55-1.02) mg/dL Est Cr Clr Drug Dosing 20.41 mL/min Estimated GFR (MDRD) 24 (>60) mL/min BUN/Creatinine Ratio 28.5 H (14-18) Glucose 107 (83-115) mg/dL POC Glucose (83-110) mg/dL Calcium 9.0 (8.5-10.1) mg/dL Magnesium 2.4 (1.8-2.4) mg/dl NT-Pro-B Natriuret Pep (0-125) pg/mL Vitamin B12 (193-986) pg/ml Med Orders - Current: Current Medications Al Hydroxide/Mg Hydroxide (Mag-Al Plus) 30 ml PO Q4H PRN PRN Reason: Heartburn Last Admin: 11/01/17 10:04 Dose: 30 ml Alogliptin Benzoate (Alogliptin) 6.25 mg PO DAILY [facility] Last Admin: 11/02/17 09:18 Dose: 6.25 mg Carvedilol (Coreg) 3.125 mg PO BID [facility] Cholecalciferol (Vitamin D3) 2,000 units PO DAILY [facility] Last Admin: 11/02/17 09:21 Dose: 2,000 units Dextrose/Water (Dextrose 50% In Water) 50 ml IVPUSH ASDIRECTED PRN PRN Reason: Hypoglycemia Fluoxetine HCl (Prozac) 60 mg PO DAILY [facility] Last Admin: 11/02/17 09:19 Dose: 60 mg Heparin Sodium (Porcine) (Heparin Sodium) 5,000 units SUBCUT Q8H [facility] Last Admin: 11/02/17 09:23 Dose: 5,000 units Furosemide 100 mg/ Sodium (Chloride) 100 mls @ 4 mls/hr IV TITRATE [facility] Stop: 11/02/17 11:01 Last Admin: 11/01/17 12:08 Dose: 3 mls/hr Insulin Aspart (Novolog) 0 unit SUBCUT QIDACANDBED [facility]; Protocol Last Admin: 11/02/17 07:14 Dose: Not Given Levothyroxine Sodium (Levothyroxine) 75 mcg PO ACBREAKFAST [facility] Last Admin: 11/02/17 05:49 Dose: 75 mcg Nystatin (Nystatin Crm) 0 gm TOP QID PRN PRN Reason: rash Last Admin: 11/02/17 09:22 Dose: 30 mg Potassium Chloride (Klor-Con 10) 20 meq PO DAILY [facility] Last Admin: 11/01/17 08:54 Dose: 20 meq Temazepam (Restoril) 15 mg PO BEDTIME PRN PRN Reason: Insomnia Last Admin: 11/01/17 22:16 Dose: 15 mg Triamcinolone Acetonide (Triamcinolone Acetonide 0.5%) 0 gm TOP BID [facility] Last Admin: 11/02/17 09:22 Dose: Not Given Discontinued Medications Albuterol/Ipratropium (Duoneb 3.0-0.5 Mg/3 Ml) 3 ml NEB ONETIME ONE Stop: 10/31/17 00:53 Last Admin: 10/31/17 00:55 Dose: 3 ml Albuterol/Ipratropium (Duoneb 3.0-0.5 Mg/3 Ml) Confirm Administered Dose 3 ml .ROUTE .STK-MED ONE Stop: 10/31/17 00:53 Last Admin: 10/31/17 01:18 Dose: Not Given Furosemide (Lasix) 40 mg IVPUSH NOW ONE Stop: 10/31/17 02:02 Last Admin: 10/31/17 02:05 Dose: 40 mg Furosemide (Lasix) 40 mg IVPUSH NOW ONE Stop: 10/31/17 06:01 Last Admin: 10/31/17 06:27 Dose: 40 mg Furosemide (Lasix) 40 mg IVPUSH NOW ONE Stop: 10/31/17 17:01 Last Admin: 10/31/17 17:37 Dose: 40 mg Furosemide 100 mg/ Sodium (Chloride) 100 mls @ 4 mls/hr IV TITRATE LANDRY; Protocol Sodium Polystyrene Sulfonate (Kayexalate) 45 gm PO NOW ONE Stop: 10/31/17 10:33 Last Admin: 10/31/17 11:01 Dose: 45 gm - Exam Quality Assessment: Supplemental Oxygen, DVT Prophylaxis General: Alert, Oriented, No Acute Distress HEENT: Pupils Equal, Pupils Reactive, EOMI Neck: Trachea Midline, No JVD Lungs: Normal Respiratory Effort Cardiovascular: Regular Rate, Regular Rhythm, Other (miffled heart sounds) GI/Abdominal Exam: Normal Bowel Sounds, Soft, Non-Tender, No Organomegaly (Female) Exam: Deferred Back Exam: Normal Inspection Extremities: Normal Inspection, Pedal Edema Skin: Warm Neurological: No New Focal Deficit Psy/Mental Status: Alert, Normal Affect, Normal Mood - Problem List & Annotations (1) Diabetes mellitus SNOMED Code(s): 56430913 Code(s): E11.9 - TYPE 2 DIABETES MELLITUS WITHOUT COMPLICATIONS Status: Acute Current Visit: Yes (2) Hypertension SNOMED Code(s): 80354766 Code(s): I10 - ESSENTIAL (PRIMARY) HYPERTENSION Status: Acute Current Visit: Yes (3) Hyperlipidemia associated with type 2 diabetes mellitus SNOMED Code(s): 018162412537, 329377769754 Code(s): E11.69 - TYPE 2 DIABETES MELLITUS WITH OTHER SPECIFIED COMPLICATION ; E78.5 - HYPERLIPIDEMIA, UNSPECIFIED Status: Acute Current Visit: Yes (4) Morbid obesity due to excess calories SNOMED Code(s): 538598707 Code(s): E66.01 - MORBID (SEVERE) OBESITY DUE TO EXCESS CALORIES Status: Acute Current Visit: Yes (5) Congestive heart failure SNOMED Code(s): 03527355 Code(s): I50.9 - HEART FAILURE, UNSPECIFIED Status: Acute Current Visit: Yes (6) Fluid retention SNOMED Code(s): 05930527 Code(s): R60.9 - EDEMA, UNSPECIFIED Status: Acute Current Visit: Yes (7) Hyperkalemia SNOMED Code(s): 98132305 Code(s): E87.5 - HYPERKALEMIA Status: Acute Current Visit: Yes (8) Renal insufficiency SNOMED Code(s): 246489583, 624708302 Code(s): N28.9 - DISORDER OF KIDNEY AND URETER, UNSPECIFIED Status: Acute Current Visit: Yes (9) Abnormal liver function tests SNOMED Code(s): 197992217 Code(s): R79.89 - OTHER SPECIFIED ABNORMAL FINDINGS OF BLOOD CHEMISTRY Status: Acute Current Visit: No (10) Acute encephalopathy SNOMED Code(s): 70109072, 098160463 Code(s): G93.40 - ENCEPHALOPATHY, UNSPECIFIED Status: Acute Current Visit : No - Problem List Review Problem List Initiated/Reviewed/Updated: Yes - My Orders Last 24 Hours: My Active Orders 11/01/17 09:00 Alogliptin Benzoate [Alogliptin] 6.25 mg PO DAILY Cholecalciferol (Vitamin D3) [Vitamin D3] 2,000 units PO DAILY FLUoxetine [PROzac] 60 mg PO DAILY Potassium Chloride [Klor-Con 10] 20 meq PO DAILY 11/01/17 09:30 Heparin Sodium 5,000 units SUBCUT Q8H 11/01/17 09:53 Alum Hydrox/Mag Hydrox/Simeth [Mag-Al Plus] 30 ml PO Q4H PRN 11/01/17 11:00 Furosemide [Lasix] 100 mg Sodium Chloride 0.9% [Normal Saline] 90 ml IV TITRATE 11/01/17 22:00 Temazepam [Restoril] 15 mg PO BEDTIME PRN 11/02/17 Lunch 2 Gram Sodium Diet [DIET] Fluid Restriction [DIET] - Plan Plan:: Impression: Query acute decompensated HF HF, unclear etiology; refused 2D echo after it was started History of recent hospitalization for respiratory distress Hyperkalemia--resolved after kayexelate Morbid obesity, BMI 56.7 Hx of medical noncompliance and dietary indiscretion 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
[2017-11-02] MEDS: Temazepam 15 MG Cap PO PRN (22:38)
[2017-11-03] MEDS: Heparin Sodium 5,000 Units/ML Vial SUBCUT SCH ×2 (01:35→09:05)
[2017-11-03] MEDS: Levothyroxine 75 MCG Tab PO SCH (06:56)
[2017-11-03] MEDS: Insulin Aspart 100 Units/ML 3 ML Pen SUBCUT SCH ×2 (08:14→12:17)
[2017-11-03 08:45] VITALS: BP 137/68
[2017-11-03] MEDS: Cholecalciferol (Vitamin D3) 1,000 Unit Tab PO SCH (09:06)
[2017-11-03] MEDS: Alogliptin 12.5 MG TABLET PO SCH (09:06)
[2017-11-03] MEDS: FLUoxetine 20 MG Cap PO SCH (09:06)
[2017-11-03] MEDS: Nystatin Crm 30 GM Tube TOP PRN (09:08)
[2017-11-03] MEDS: Triamcinolone Acetonide 0.5% Crm 15 GM Tube TOP SCH ×2 (09:09→09:21)
--- NOTE | 2017-11-03 13:49 | PCM.DCSUM1 ---
Discharge Summary - Hospital Course Free Text/Narrative:: 76 year old female presented early 10/31/17 w/ a complaint of TOAN, the patient granddaughter reports that she has been SOB, duration is unknown. Activity level is not specified, presumptively NYHA functional class IV. She ambulates minimally, and uses a scooter. Is morbidly obese, BMI 56.7. She was in the hospital in [place], [place] July 2017, treatment addressed acute respiratory distress/failure. The patient reportedly is on chronic O2, 4l/min. At that time she was hypoglycemic, requiring an amp of D50. Currently there is no syncopal/presyncopal episodes, CP/discomfort, or change in appetite; she admits to TOAN/SOB with LE swelling. The majority of the history was provided by her granddaughter who announced that she would not take her grandmother home if she was not admitted. Unable to determine previous evaluation for CHF, a 2 D echo has been ordered. Code status is DNR/DNI. - Discharge Data Discharge Date: 11/03/17 Discharge Disposition: Home, Self-Care 01 Condition: Good - Discharge Diagnosis/Problem(s) (1) Diabetes mellitus SNOMED Code(s): 81731868 ICD Code: E11.9 - TYPE 2 DIABETES MELLITUS WITHOUT COMPLICATIONS Status: Acute Qualifiers: Diabetes mellitus type: type 2 (2) Hypertension SNOMED Code(s): 51597747 ICD Code: I10 - ESSENTIAL (PRIMARY) HYPERTENSION Status: Acute (3) Hyperlipidemia associated with type 2 diabetes mellitus SNOMED Code(s): 253448098845, 416163776888 ICD Code: E11.69 - TYPE 2 DIABETES MELLITUS WITH OTHER SPECIFIED COMPLICATION ; E78.5 - HYPERLIPIDEMIA, UNSPECIFIED Status: Acute (4) Morbid obesity due to excess calories SNOMED Code(s): 751124475 ICD Code: E66.01 - MORBID (SEVERE) OBESITY DUE TO EXCESS CALORIES Status: Acute (5) Congestive heart failure SNOMED Code(s): 11880639 ICD Code: I50.9 - HEART FAILURE, UNSPECIFIED Status: Acute (6) Fluid retention SNOMED Code(s): 67685691 ICD Code: R60.9 - EDEMA, UNSPECIFIED Status: Acute (7) Hyperkalemia SNOMED Code(s): 71379978 ICD Code: E87.5 - HYPERKALEMIA Status: Resolved (8) Renal insufficiency SNOMED Code(s): 171538091, 388742240 ICD Code: N28.9 - DISORDER OF KIDNEY AND URETER, UNSPECIFIED Status: Acute (9) Abnormal liver function tests SNOMED Code(s): 157810488 ICD Code: R79.89 - OTHER SPECIFIED ABNORMAL FINDINGS OF BLOOD CHEMISTRY Status: Resolved (10) Acute encephalopathy SNOMED Code(s): 81641168, 913057344 ICD Code: G93.40 - ENCEPHALOPATHY, UNSPECIFIED Status: Resolved - Patient Summary/Data Consults: Consultations 10/31/17 12:01 Consult to Occupational Therapy [OT Evaluation and Treatment] [CONS] Routine Consult to Physical Therapy [PT Evaluation and Treatment] [CONS] Routine 10/31/17 12:55 Consult to Case Management [CONS] Routine 11/01/17 00:01 Consult to Dietary [Consult to Lowerator Operator] [CONS] Routine Hospital Course: 76 year old female, poor historian, admitted with CHF exacerbation. She was diuresed as much as possible, the limitation was willingness to comply with dietary restrictions. A skilled Home Health service order has been requested do to the listed medical diagnosis in this report. Lauren Silva would benefit from disease assessment/ management, vital signs, frequent weights and physical therapy. The patient is homebound with limited mobility and weakness, and would benefit from services to increase her level of independence. - Patient Instructions Diet: Low Sodium, Diabetic Diet Activity: As Tolerated Activity, Other: Weight loss to achieve a BMI<35, current 54.4 Driving: Do Not Drive Showering/Bathing: May Shower Notify Provider of: Fever, Increased Pain, Nausea and/or Vomiting - Discharge Plan Prescriptions/Med Rec: Bumetanide [Bumex] 1 mg PO BID #60 tab Home Medications: Home Meds FLUoxetine [PROzac] 60 mg PO DAILY 02/15/15 [History] Potassium Chloride [Klor-Con 10] 20 meq PO DAILY 02/15/15 [History] Carvedilol [Coreg] 3.125 mg PO BID #0 02/19/15 [Rx] Cholecalciferol (Vitamin D3) [Vitamin D3] 2,000 unit PO DAILY 10/31/17 [History] Levothyroxine 75 mcg PO DAILY 10/31/17 [History] Nystatin [Nystatin Crm] 1 dose TOP QID PRN 10/31/17 [History] SitaGLIPtin [Januvia] 25 mg PO DAILY 10/31/17 [History] Triamcinolone Acetonide [Triamcinolone Acetonide 0.5%] 1 dose TOP BID 10/31/17 [ History] hydrALAZINE [Apresoline] 10 mg PO Q8H 10/31/17 [History] Bumetanide [Bumex] 1 mg PO BID #60 tab 11/03/17 [Rx] Patient Handouts: Type 2 Diabetes Mellitus, Diagnosis, Adult, Heart-Healthy Eating Plan, [id number], Edema, DASH Eating Plan, Type 2 Diabetes Mellitus, Self Care, Adult, [id number], Low-Sodium Eating Plan, Heart Failure, Easy-to- Read, Edema, [id number] Referrals: PCP,Not In Area [Primary Care Provider] - () - Discharge Summary/Plan Comment DC Time >30 min.: No Discharge Summary/Plan Comment: Impression: Query acute decompensated HF HF, unclear etiology; refused 2D echo after it was started History of recent hospitalization for respiratory distress Hyperkalemia--resolved after kayexelate Morbid obesity, BMI 56.7 Hx of medical noncompliance and dietary indiscretion 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 DM type 2 HLD HTN Morbid Obesity Plan: New diuretic----CHECK ELECTROLYTES AND RENAL FUNCTION ON BUMEX Diurese w/ lasix gtt 24 hours; wgt loss 6 pounds Diuretic change to Bumex 1 mg BID Labs after DC: BMP, BNP Diet restriction changes--2000 ADA, 2 gm sodium Home meds Weight loss>100 pounds needed Consult CM/PT/OT Consult dietary for ADA/Wgt loss DVT/GI prophylaxis - General Info Date of Service: 11/03/17 Functional Status: Reports: Pain Controlled, Tolerating Diet, Ambulating, Urinating - Review of Systems General: Reports: Weakness HEENT: Reports: No Symptoms Pulmonary: Reports: Shortness of Breath Cardiovascular: Reports: No Symptoms Gastrointestinal: Reports: No Symptoms Genitourinary: Reports: No Symptoms Musculoskeletal: Reports: No Symptoms Skin: Reports: No Symptoms Neurological: Reports: No Symptoms Psychiatric: Reports: No Symptoms - Patient Data Vitals - Most Recent: Last Vital Signs Temp 36.9 C 11/03/17 07:58 Pulse 61 11/03/17 07:58 Resp 16 11/03/17 07:58 BP 131/70 11/03/17 07:58 Pulse Ox 98 11/03/17 07:58 Weight - Most Recent: 139.253 kg I&O - Last 24 hours: Intake & Output 11/02/17 11/03/17 11/03/17 22:59 06:59 14:59 Intake Total 664 347 180 Output Total 300 Balance 364 347 180 Lab Results - Last 24 hrs: Laboratory Results - last 24 hr 11/02/17 11/02/17 11/03/17 Range/Units 17:15 21:11 05:48 WBC (3.98-10.04) K/mm3 RBC (3.98-5.22) M/mm3 Hgb (11.2-15.7) gm/L Hct (34.1-44.9) % MCV (79.4-94.8) fl MCH (25.6-32.2) pg MCHC (32.2-35.5) g/dl RDW Std Deviation (36.4-46.3) fL Plt Count (182-369) K/mm3 MPV (9.4-12.3) fl Neut % (Auto) (34.0-71.1) % Lymph % (Auto) (19.3-51.7) % [place] % (Auto) (4.7-12.5) % Eos % (Auto) (0.7-5.8) Baso % (Auto) (0.1-1.2) % Neut # (Auto) (1.56-6.13) K/mm3 Lymph # (Auto) (1.18-3.74) K/mm3 [place] # (Auto) (0.24-0.36) K/mm3 Eos # (Auto) (0.04-0.36) K/mm3 Baso # (Auto) (0.01-0.08) K/mm3 Manual Slide Review Sodium (136-145) mEq/L Potassium (3.5-5.1) mEq/L Chloride (98-107) mEq/L Carbon Dioxide (21-32) mEq/L Anion Gap (5-15) BUN (7-18) mg/dL Creatinine (0.55-1.02) mg/dL Est Cr Clr Drug Dosing mL/min Estimated GFR (MDRD) (>60) mL/min BUN/Creatinine Ratio (14-18) Glucose (83-115) mg/dL POC Glucose 176 H 117 H 86 (83-110) mg/dL Calcium (8.5-10.1) mg/dL NT-Pro-B Natriuret Pep (0-125) pg/mL 11/03/17 11/03/17 11/03/17 Range/Units 10:53 10:53 10:53 WBC 8.36 (3.98-10.04) K/mm3 RBC 3.88 L (3.98-5.22) M/mm3 Hgb 11.5 (11.2-15.7) gm/L Hct 38.4 (34.1-44.9) % MCV 99.0 H (79.4-94.8) fl MCH 29.6 (25.6-32.2) pg MCHC 29.9 L (32.2-35.5) g/dl RDW Std Deviation 55.3 H (36.4-46.3) fL Plt Count 160 L (182-369) K/mm3 MPV 10.1 (9.4-12.3) fl Neut % (Auto) 79.9 H (34.0-71.1) % Lymph % (Auto) 9.7 L (19.3-51.7) % [place] % (Auto) 5.6 (4.7-12.5) % Eos % (Auto) 4.3 (0.7-5.8) Baso % (Auto) 0.1 (0.1-1.2) % Neut # (Auto) 6.68 H (1.56-6.13) K/mm3 Lymph # (Auto) 0.81 L (1.18-3.74) K/mm3 [place] # (Auto) 0.47 H (0.24-0.36) K/mm3 Eos # (Auto) 0.36 (0.04-0.36) K/mm3 Baso # (Auto) 0.01 (0.01-0.08) K/mm3 Manual Slide Review Abnormal smear Sodium 146 H (136-145) mEq/L Potassium 3.7 (3.5-5.1) mEq/L Chloride 109 H (98-107) mEq/L Carbon Dioxide 31 (21-32) mEq/L Anion Gap 9.7 (5-15) BUN 46 H (7-18) mg/dL Creatinine 1.5 H (0.55-1.02) mg/dL Est Cr Clr Drug Dosing 27.22 mL/min Estimated GFR (MDRD) 34 (>60) mL/min BUN/Creatinine Ratio 30.7 H (14-18) Glucose 107 (83-115) mg/dL POC Glucose (83-110) mg/dL Calcium 9.2 (8.5-10.1) mg/dL NT-Pro-B Natriuret Pep 49566 H (0-125) pg/mL 11/03/17 Range/Units 11:09 WBC (3.98-10.04) K/mm3 RBC (3.98-5.22) M/mm3 Hgb (11.2-15.7) gm/L Hct (34.1-44.9) % MCV (79.4-94.8) fl MCH (25.6-32.2) pg MCHC (32.2-35.5) g/dl RDW Std Deviation (36.4-46.3) fL Plt Count (182-369) K/mm3 MPV (9.4-12.3) fl Neut % (Auto) (34.0-71.1) % Lymph % (Auto) (19.3-51.7) % [place] % (Auto) (4.7-12.5) % Eos % (Auto) (0.7-5.8) Baso % (Auto) (0.1-1.2) % Neut # (Auto) (1.56-6.13) K/mm3 Lymph # (Auto) (1.18-3.74) K/mm3 [place] # (Auto) (0.24-0.36) K/mm3 Eos # (Auto) (0.04-0.36) K/mm3 Baso # (Auto) (0.01-0.08) K/mm3 Manual Slide Review Sodium (136-145) mEq/L Potassium (3.5-5.1) mEq/L Chloride (98-107) mEq/L Carbon Dioxide (21-32) mEq/L Anion Gap (5-15) BUN (7-18) mg/dL Creatinine (0.55-1.02) mg/dL Est Cr Clr Drug Dosing mL/min Estimated GFR (MDRD) (>60) mL/min BUN/Creatinine Ratio (14-18) Glucose (83-115) mg/dL POC Glucose 104 (83-110) mg/dL Calcium (8.5-10.1) mg/dL NT-Pro-B Natriuret Pep (0-125) pg/mL Med Orders - Current: Current Medications Al Hydroxide/Mg Hydroxide (Mag-Al Plus) 30 ml PO Q4H PRN PRN Reason: Heartburn Last Admin: 11/01/17 10:04 Dose: 30 ml Alogliptin Benzoate (Alogliptin) 6.25 mg PO DAILY [facility] Last Admin: 11/03/17 09:06 Dose: 6.25 mg Bumetanide (Bumex) 1 mg PO BIDDIURETIC [facility] Carvedilol (Coreg) 3.125 mg PO BID [facility] Cholecalciferol (Vitamin D3) 2,000 units PO DAILY [facility] Last Admin: 11/03/17 09:06 Dose: 2,000 units Dextrose/Water (Dextrose 50% In Water) 50 ml IVPUSH ASDIRECTED PRN PRN Reason: Hypoglycemia Fluoxetine HCl (Prozac) 60 mg PO DAILY [facility] Last Admin: 11/03/17 09:06 Dose: 60 mg Heparin Sodium (Porcine) (Heparin Sodium) 5,000 units SUBCUT Q8H [facility] Last Admin: 11/03/17 09:05 Dose: 5,000 units Furosemide 100 mg/ Sodium (Chloride) 100 mls @ 4 mls/hr IV TITRATE [facility]; Protocol Last Admin: 11/02/17 12:00 Dose: 4 mls/hr Insulin Aspart (Novolog) 0 unit SUBCUT QIDACANDBED [facility]; Protocol Last Admin: 11/03/17 12:17 Dose: Not Given Levothyroxine Sodium (Levothyroxine) 75 mcg PO ACBREAKFAST [facility] Last Admin: 11/03/17 06:56 Dose: 75 mcg Nystatin (Nystatin Crm) 0 gm TOP QID PRN PRN Reason: rash Last Admin: 11/03/17 09:08 Dose: 1 mg Potassium Chloride (Klor-Con 10) 20 meq PO DAILY [facility] Last Admin: 11/01/17 08:54 Dose: 20 meq Temazepam (Restoril) 15 mg PO BEDTIME PRN PRN Reason: Insomnia Last Admin: 11/02/17 22:38 Dose: 15 mg Triamcinolone Acetonide (Triamcinolone Acetonide 0.5%) 0 gm TOP BID [facility] Last Admin: 11/03/17 09:21 Dose: 1 applic Discontinued Medications Albuterol/Ipratropium (Duoneb 3.0-0.5 Mg/3 Ml) 3 ml NEB ONETIME ONE Stop: 10/31/17 00:53 Last Admin: 10/31/17 00:55 Dose: 3 ml Albuterol/Ipratropium (Duoneb 3.0-0.5 Mg/3 Ml) Confirm Administered Dose 3 ml .ROUTE .STK-MED ONE Stop: 10/31/17 00:53 Last Admin: 10/31/17 01:18 Dose: Not Given Furosemide (Lasix) 40 mg IVPUSH NOW ONE Stop: 10/31/17 02:02 Last Admin: 10/31/17 02:05 Dose: 40 mg Furosemide (Lasix) 40 mg IVPUSH NOW ONE Stop: 10/31/17 06:01 Last Admin: 10/31/17 06:27 Dose: 40 mg Furosemide (Lasix) 40 mg IVPUSH NOW ONE Stop: 10/31/17 17:01 Last Admin: 10/31/17 17:37 Dose: 40 mg Furosemide 100 mg/ Sodium (Chloride) 100 mls @ 4 mls/hr IV TITRATE [facility] Stop: 11/02/17 11:01 Last Admin: 11/01/17 12:08 Dose: 3 mls/hr Furosemide 100 mg/ Sodium (Chloride) 100 mls @ 4 mls/hr IV TITRATE [facility]; Protocol Furosemide 100 mg/ Sodium (Chloride) 100 mls @ 4 mls/hr IV SEECOMMENT [facility]; Protocol Stop: 11/03/17 09:45 Sodium Polystyrene Sulfonate (Kayexalate) 45 gm PO NOW ONE Stop: 10/31/17 10:33 Last Admin: 10/31/17 11:01 Dose: 45 gm - Exam Quality Assessment: Reports: Supplemental Oxygen, DVT Prophylaxis General: Reports: Alert, Oriented, Cooperative, No Acute Distress HEENT: Reports: Pupils Equal, Pupils Reactive, EOMI Neck: Reports: Trachea Midline, No JVD Lungs: Reports: Normal Respiratory Effort, Decreased Breath Sounds Cardiovascular: Reports: Regular Rate, Regular Rhythm GI/Abdominal Exam: Normal Bowel Sounds, Soft, Non-Tender, No Organomegaly, No Distention (Female) Exam: Deferred Rectal (Female) Exam: Deferred Back Exam: Reports: Normal Inspection Extremities: Normal Inspection, Normal Capillary Refill Skin: Reports: Warm, Dry, Intact Wound/Incisions: Reports: Other (right foot plantar: mild erythema, friction injury; no prulent drainage) Neurological: Reports: No New Focal Deficit, Normal Speech Psy/Mental Status: Reports: Alert, Normal Affect, Normal Mood
[2017-11-03] MEDS ORDERED: Bumetanide 1 MG Tab PO SCH (14:00)
== END 2017-11-03 13:46 | disposition home or self-care (01) | DRG 698 ==
LOC: JD.ED 00:40 → JD.ICU 03:54 → JD.MS 15:26
PROVIDERS: ADMIT Internal Medicine Cardiovascular Disease; ATTEND Internal Medicine Cardiovascular Disease
DX: N28.9 Disorder of kidney and ureter, unspecified (principal); G93.40 Encephalopathy, unspecified; I13.0 Hypertensive heart and chronic kidney disease with heart failure and stage 1 through stage 4 chronic kidney disease, or unspecified chronic kidney disease; N18.9 Chronic kidney disease, unspecified; Z68.43 Body mass index [BMI] 50.0-59.9, adult; E66.9 Obesity, unspecified; Z68.44 Body mass index [BMI] 60.0-69.9, adult; R79.89 Other specified abnormal findings of blood chemistry; I50.9 Heart failure, unspecified; E87.5 Hyperkalemia; E11.22 Type 2 diabetes mellitus with diabetic chronic kidney disease; K57.90 Diverticulosis of intestine, part unspecified, without perforation or abscess without bleeding; R53.1 Weakness; R06.03 Acute respiratory distress; R06.82 Tachypnea, not elsewhere classified; R60.9 Edema, unspecified; R00.1 Bradycardia, unspecified; R06.02 Shortness of breath; R26.2 Difficulty in walking, not elsewhere classified; E66.01 Morbid (severe) obesity due to excess calories; G47.30 Sleep apnea, unspecified; E03.9 Hypothyroidism, unspecified; N18.4 Chronic kidney disease, stage 4 (severe); E11.69 Type 2 diabetes mellitus with other specified complication; Z91.19 Patient's noncompliance with other medical treatment and regimen; Z99.81 Dependence on supplemental oxygen; Z66 Do not resuscitate; Z91.14 Patient's other noncompliance with medication regimen; Z79.84 Long term (current) use of oral hypoglycemic drugs; Z88.1 Allergy status to other antibiotic agents; Z87.442 Personal history of urinary calculi; Z79.899 Other long term (current) drug therapy; Z87.01 Personal history of pneumonia (recurrent); Z88.0 Allergy status to penicillin
CPT/HCPCS: 36415; 36600; 71045; 80053; 82803; 82962; 83880; 84132; 85025; 93005; 94640; 96374; 99285; J1940; 71046; 71046-26; 80048; 80061; 82607; 82747; 83036; 83735; 84443; 85014; 97110-GP; 97162-GP; 97165-GO; 97530-GP; A9270-GY; J1644; J1815-GY; J7030